=== PATIENT | female | born 1980 | race Two or more races ===

== ENCOUNTER 2018-12-08 18:45 | Emergency (ER) | payer MEDICAID, OTHER ==
[~2018-12-08] VITALS: Ht 152.4 cm; Wt 55.0 kg
[2018-12-08] MEDS ORDERED: MAGNESIUM/ALUMINUM HYDROXIDE/SIMETHICONE 30ML UDC PO STA (22:24)
[2018-12-08] MEDS ORDERED: ONDANSETRON HCL 4MG/2ML INJ IV STA (22:24)
[2018-12-08] MEDS ORDERED: KETOROLAC 30MG/ML VIAL IV STA (22:24)
[2018-12-08 23:28] LABS: CHLORIDE 106 mEq/L (98-107)
[2018-12-08 23:29] LABS: BASOPHILS % 0.7 % (0.0-2.0); EOSINOPHILS % 1.5 % (0.0-5.0); HEMATOCRIT. 38.7 % (36.0-48.0); HEMOGLOBIN. 13.6 g/dL (12.0-16.0); LYMPHOCYTES % 25.1 % (20.0-50.0); MEAN CORPUSCULAR HEMOGLOBIN 31.3 pg (28.0-32.0); MEAN PLATELET VOLUME 6.9 fl (7.4-10.4); MONOCYTES % 7.3 % (2.0-8.0); NEUTROPHILS % 65.4 % (40.0-76.0); PLATELET 359 x1000/uL (130-400); RED BLOOD CELL COUNT 4.34 mill/uL (4.2-5.4); RED CELL DISTRIBUTION WIDTH 12.8 % (11.6-14.6)
[2018-12-08 23:38] LABS: CLARITY URINE CLEAR (CLEAR); COLOR URINE YELLOW (YELLOW); KETONES URINE NEGATIVE (NEGATIVE); LEUKOCYTE ESTERASE URINE TRACE (NEGATIVE); NITRITE URINE NEGATIVE (NEGATIVE); OCCULT BLOOD URINE 1+ (NEGATIVE); PH URINE 6.5 (4.5-8.0); PROTEIN URINE NEGATIVE (NEGATIVE); SPECIFIC GRAVITY URINE 1.015 (1.005-1.030)
[2018-12-09 01:00] VITALS: BP 97/63
[2018-12-09 01:34] LABS: HEPATITIS A AB IGM NEGATIVE (NEGATIVE)
[2018-12-09 02:03] LABS: HEPATITIS B SURFACE ANTIGEN NEGATIVE
== END 2018-12-09 02:45 | disposition home or self-care (01) ==
LOC: ER 18:45
DX: K80.20 Calculus of gallbladder without cholecystitis without obstruction (principal); K76.0 Fatty (change of) liver, not elsewhere classified
CPT/HCPCS: 36415; 76705; 80053; 80307; 81003; 81025; 83690; 84484; 85025; 93005; 96374; 96375; 99284; J1885; J2405; 86705; 86709; 86803; 87340